=== PATIENT | male | born 1960 | race Caucasian/White ===

== ENCOUNTER 2017-06-25 12:25 | Day surgery (SDC) | payer BC, OTHER, SELFPAY | END 2017-06-25 15:50 | disposition home or self-care (01) | PROVIDERS: PCP Family Medicine; Visit Provider Orthopaedic Surgery Orthopaedic Surgery of the Spine | DX: M48.061 Spinal stenosis, lumbar region without neurogenic claudication (principal); M47.26 Other spondylosis with radiculopathy, lumbar region; I10 Essential (primary) hypertension; E66.01 Morbid (severe) obesity due to excess calories | CPT/HCPCS: 63047; 63048; 63030; 72100; 76001; J0131; J0690; J1030; J1100; J2250; J2405; J2704; J3010 ==

== ENCOUNTER 2019-05-23 21:59 | Emergency (ER) | payer OTHER, SELFPAY ==
[2019-05-23 22:07] VITALS: BP 172/93; PULSE 78; RESP 16; TEMP 36.2; O2SAT 99; BMI 38.7
--- NOTE | 2019-05-23 23:43 | DI.RAD.S_ITS ---
PROCEDURE: XR PELVIS 1-2V INDICATIONS: low back pain, hurts to move hips TECHNIQUE: 3 view(s) of the pelvis acquired. COMPARISON: [facility] [place] Mcinty[place], XR PELVIS WITH LATERAL HIP RIGHT, 05/18/2017, 10:36. FINDINGS: Bones: Postsurgical changes related to a right hip arthroplasty are again evident. No periprosthetic fractures are identified. Mild to moderate degenerative changes of the other pelvic joints are present. No suspicious osseous lesions or displaced pelvic fractures are evident. 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 Soft tissues: Visualized bowel gas pattern is normal. No suspicious soft tissue calcifications. IMPRESSION: No displaced fractures of the pelvis. Dictated by: Frederick Harrell M.D. on 05/24/2019 at 9:32 Approved by: Frederick Harrell M.D. on 05/24/2019 at 9:33
--- NOTE | 2019-05-23 23:43 | DI.CT.S_ITS ---
PROCEDURE: CT LUMBAR SPINE WO CON INDICATIONS: fall backwards landing on back TECHNIQUE: Noncontrast 3 mm thick sections acquired from the T12 level to the sacrum. Sagittal and coronal reformats were constructed. For radiation dose reduction, the following was used: automated exposure control. COMPARISON: [facility] [place], CR, XR LUMBAR SPINE 2 OR 3 VIEWS, 08/03/2017, 10:56. [facility], MR, L-SPINE WITHOUT CONTRAST, 05/29/2017, 12:04. FINDINGS: Image quality: Diagnostic. Bones: The vertebral body heights are of the lumbar spine are well-maintained. No acute compression fractures or displaced rib fractures are evident. Old injuries involving the left L1, L2, and L3 transverse processes are present. Moderate multilevel degenerative changes of the lumbar spine are similar to the most recent MRI with areas of disc height loss, endplate irregularity, and facet arthrosis. These findings are more prominent involving the facet joints of the lower lumbar spine. No suspicious osseous lesions are identified. Soft tissues: No retroperitoneal masses or hematomas. There is aortic atherosclerosis. Visualized aorta is normal in caliber. Subcutaneous edema within it and the dorsal lower lumbar subcutaneous tissues is present. IMPRESSION: Moderate degenerative changes of the lumbar spine without an acute fracture evident. Note: The preliminary report provided by [employer] is concordant with the final report. Dictated by: Frederick Harrell M.D. on 05/24/2019 at 9:38 Approved by: Frederick Harrell M.D. on 05/24/2019 at 9:40
[2019-05-23] MEDS: MORPHINE 4 MG/ML INJ IM (23:54)
[2019-05-23] MEDS: KETOROLAC 60 MG/2 ML VIAL 30 MG IM (23:54)
[2019-05-23] MEDS: CYCLOBENZAPRINE 10 MG TABLET PO (23:55)
--- NOTE | 2019-05-24 01:27 | ED.FALL ---
HPI - Fall General Chief Complaint: Fall Stated Complaint: Fall Time Seen by Provider: 05/23/19 23:35 Source: patient Mode of arrival: EMS History of Present Illness HPI Narrative: HPI: The patient is a 59-year-old male who was pulling on a stump or piece of wood and it suddenly gave out and he fell backwards onto concrete landing on his lower back than striking his neck and head. Patient states that he really did strike his head because he was wearing a hard helmet and the helmet struck the pavement. He denies any headache neck pain. However his severe lower back pain and was brought into the emergency department by ambulance. He denies any shooting pain down his legs weakness or paralysis arm. He is not on any anticoagulant and only takes a baby aspirin. He denied any chest pain shortness of breath difficulty in breathing any numbness tingling paresthesias anesthesia is paresis any cough or shortness of breath or chest pain. He has had no belly pain nausea or vomiting no diarrhea no urinary symptoms. He was not incontinence of urine or stool. The patient denies that he smokes cigarettes. Related Data Home Medications Medication Instructions Recorded Confirmed lisinopril 20 mg PO QDAY #0 09/21/12 aspirin 81 mg PO QDAY #0 10/09/12 hydrochlorothiazide 12.5 mg PO QDAY #0 02/05/17 meloxicam [Mobic] 15 mg PO #0 02/05/17 multivitamin [Multiple Vitamins] 1 tab PO QDAY #0 02/05/17 Previous Rx's Medication Instructions Recorded oxycodone 5 mg PO Q4HP PRN #90 tab 02/07/17 zolpidem 5 mg PO HSP PRN #30 tab 02/07/17 cyclobenzaprine 10 mg PO TID PRN #15 tab 05/24/19 naproxen [Naprosyn] 500 mg PO BID PRN #14 tab 05/24/19 oxycodone-acetaminophen [Percocet] 1 tab PO Q4-6H PRN #12 tab 05/24/19 Allergies Allergy/AdvReac Type Severity Reaction Status Date / Time No Known Drug Allergies Allergy Verified 05/23/19 22:10 Review of Systems Review of Systems Narrative: Review of systems were all negative except for those mentioned in the history of present illness. Exam Narrative Exam Narrative: PHYSICAL EXAM: CONSTITUTIONAL: Awake, Alert, Oriented, Coherent, Cooperative who is in moderate distress complaining of pain in his low back and unable to move without pain and discomfort. He describes the pain as spastic tight and squeezing. HEAD: AT/NC EENT: PERRL, FROM of eyes, no discharge, No epistaxis or nasal drainage Oral mucosa is moist and pink, NECK: Supple, no obvious JVD, Trachea is midline without stridor, no palpable LN or masses. SPINE: No gross deformity, no palpable tenderness of the cervical, spine THORAX: No deformity, retractions, chest wall tenderness. LUNGS: Clear with symmetrical breath sounds without respiratory distress HEART: Normal heart tones, regular rhythm and rate without murmur. ABDOMEN: Soft, non-tender, normal bowel sounds without guarding, rebound, rigidity or palpable mass . No tenderness to rocking the pelvis back and forth. EXTREMITIES: The patient has difficulty lifting his legs with knee extended off the end of the bed. He is passively able to partially flex his hips bilaterally and flex his knees. However external internal rotation of the hips cause pain and discomfort in his back. SKIN: No rash, bruising, petechiae or purpura. NEURO: Awake, alert, oriented, conversive, cranial nerves II-XII are symmetrical and normal, moves all 4 extremities and is ambulatory when discharged. Initial Vital Signs Initial Vital Signs: Vital Signs Temperature 97.1 F L 05/23/19 22:07 Pulse Rate 78 05/23/19 22:07 Respiratory Rate 16 05/23/19 22:07 Blood Pressure 172/93 H 05/23/19 22:07 Pulse Oximetry 99 05/23/19 22:07 Course Course Course Narrative: The patient states that the combination of Toradol, morphine, and cyclobenzaprine significantly relieved his pain and discomfort but not all of it. We are trying to road test the patient to see how he does. He was advised that he will probably have significant aches and pains for the neck slow 72 to 96 hours after which it should improve. He needs to be seen in follow-up by his primary care physician in 48-72 hours if not significantly better. He will be discharged. X-rays of his pelvis and hip revealed no acute fracture or dislocation. CT of his lumbar spine revealed no acute bony abnormalities according to the radiologist. Orders Ordered: Discontinued Medications Cyclobenzaprine HCl (Flexeril) 10 mg PO NOW ONE Stop: 05/23/19 23:43 Last Admin: 05/23/19 23:55 Dose: 10 mg Documented by: BRAD Ketorolac Tromethamine (Toradol) 30 mg IM NOW ONE Stop: 05/23/19 23:43 Last Admin: 05/23/19 23:54 Dose: 30 mg Documented by: BRAD Morphine Sulfate (Morphine) 4 mg IM NOW ONE Stop: 05/23/19 23:43 Last Admin: 05/23/19 23:54 Dose: 4 mg Documented by: BRAD Vital Signs Vital signs: Vital Signs - 8 hr 05/23/19 22:07 Temperature 97.1 F L Pulse Rate 78 Respiratory Rate 16 Blood Pressure 172/93 H Pulse Oximetry 99 Discharge Plan Departure Patient Disposition: Home Clinical Impression: Fall Qualifiers: Encounter type: initial encounter Qualified Code(s): W19.XXXA - Unspecified fall, initial encounter Lumbar contusion Qualifiers: Encounter type: initial encounter Qualified Code(s): S30.0XXA - Contusion of lower back and pelvis, initial encounter Low back strain Qualifiers: Encounter type: initial encounter Qualified Code(s): S39.012A - Strain of muscle, fascia and tendon of lower back, initial encounter Discharge Date/Time: 05/24/19 02:23 Instructions: How to Prevent Falls, DI for Back Strain or Sprain Activity Restrictions/Additional Instructions: 1. Follow-up with your primary care physician to be re-evaluated in 48-72 hours if your pain does not significantly improve with the medications. 2. Use a walker to ambulate while your having pain and discomfort. 3. Do not take both the Mobic and Naprosyn. Take 1 or the other. Take that medication which helps relieve your pain and discomfort the most. 4. For the next 48 hours apply cold compresses every 2-3 hours for 20-30 minutes to the area of pain and discomfort in your back. After that you can switch to warm compresses. 5 take the cyclobenzaprine 10 mg 3 times a day as needed for muscle spasms. 6. For a rescue medicine take the Percocet 5/325 every 6 hours for pain on relieved by the Naprosyn or cyclobenzaprine. 7. If you develop worsening pain or discomfort numbness tingling loss of sensation weakness or paralysis in your legs he you need to proceed to the nearest emergency department for re-evaluation. Prescriptions: New naproxen [Naprosyn] 500 mg tablet 500 mg PO BID PRN (Reason: pain) Qty: 14 RF: 0 cyclobenzaprine 10 mg tablet 10 mg PO TID PRN (Reason: muscle spasm) Qty: 15 RF: 0 oxycodone-acetaminophen [Percocet] 5-325 mg tablet 1 tab PO Q4-6H PRN (Reason: pain) Qty: 12 RF: 0 No Action lisinopril 20 MG tablet 20 mg PO QDAY Qty: 0 RF: 0 aspirin 81 MG tablet,chewable 81 mg PO QDAY Qty: 0 RF: 0 hydrochlorothiazide 12.5 MG tablet 12.5 mg PO QDAY Qty: 0 RF: 0 multivitamin [Multiple Vitamins] 1 EACH tablet 1 tab PO QDAY Qty: 0 RF: 0 meloxicam [Mobic] 7.5 MG tablet 15 mg PO Qty: 0 RF: 0 oxycodone 5 MG tablet 5 mg PO Q4HP PRNQty: 90 RF: 0 zolpidem 5 MG tablet 5 mg PO HSP PRNQty: 30 RF: 0 Referrals: Sony Lerma MD [Primary Care Provider] - ED Sign-out Cosign ED Attending Cosignature Attestation: I was immediately available in the department for consultation. This documentation has been reviewed and I agree with assessment and plan. Supervised by Shen Lo MD
--- NOTE | 2019-05-24 01:34 | PC.NURSE ---
ambulated with walker around unit, reported pain with ambulation however patient able to get self back into bed without assistance of staff. Initially patient required help sitting up. He is now sitting up comfortably on stretcher calling his to come and pick him up.
[2019-05-24 02:19] VITALS: BP 166/78; PULSE 72; RESP 18; O2SAT 99
== END 2019-05-24 02:23 | disposition home or self-care (01) ==
PROVIDERS: Emergency Provider Emergency Medicine; PCP Family Medicine
DX: S30.0XXA Contusion of lower back and pelvis, initial encounter (principal); S39.012A Strain of muscle, fascia and tendon of lower back, initial encounter; W19.XXXA Unspecified fall, initial encounter; Y99.0 Civilian activity done for income or pay
CPT/HCPCS: 72131; 72170; 96372; 99284; J1885; J2270

== ENCOUNTER 2020-08-08 19:54 | Emergency (ER) | payer BC, OTHER, SELFPAY ==
[2020-08-08] VITALS (10 sets, daily range): BP systolic 124–140; BP diastolic 67–81; PULSE 74–91; RESP 13–22; TEMP 36.3; O2SAT 94–97; BMI 39.4
--- NOTE | 2020-08-08 20:15 | DI.RAD.S_ITS ---
PROCEDURE: XR CHEST 2V INDICATIONS: Coughing/chest pain TECHNIQUE: 2 views of the chest were acquired. COMPARISON: None. FINDINGS: Surgical changes and devices: None. Lungs and pleura: Lungs are clear. No pleural effusions or pneumothorax. Mediastinum: Mediastinal contours are normal. Heart size is normal. Bones and chest wall: No suspicious bony abnormalities. Soft tissues appear unremarkable. IMPRESSION: No acute cardiopulmonary abnormality. Dictated by: Jase Arnett M.D. on 08/08/2020 at 20:56 Approved by: Jase Arnett M.D. on 08/08/2020 at 20:57
--- NOTE | 2020-08-08 20:15 | ED.NEUROSD ---
HPI - Neuro Symptoms/Deficit General Chief Complaint: Neuro Symptoms/Deficit Stated Complaint: MAKING ANY SENSE Time Seen by Provider: 08/08/20 20:15 History of Present Illness HPI Narrative: 60-year-old gentleman with a history of alcohol use disorder, hypertension and arthritis presents after his called 911 because he did not seem to be making any sense. After dinner this evening they went to sit down and he stated that he was restless and simply ?had to go for a walk?. It was raining cold and blood street and after dinner walks are not typical for the patient. He did go for a brief 1/4 mi walk of their property by the time he returned to the home he continued to act odd and told his that ?something was wrong and they needed to go to the emergency department. He was noticing increasing exertional dyspnea over the course of the day. He does note that he has been having were grunting type breathing episodes of last month. 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 He notes that he has had slight memory decline over the last number of months. He does not complain of headache, abdominal pain, vomiting or diarrhea. Has no complaints of unilateral weakness and reports no recent fever. On Anticoagulants: No Related Data Home Medications Medication Instructions Recorded Confirmed lisinopril 20 mg PO QDAY #0 09/21/12 aspirin 81 mg PO QDAY #0 10/09/12 hydrochlorothiazide 12.5 mg PO QDAY #0 02/05/17 meloxicam [Mobic] 15 mg PO #0 02/05/17 multivitamin [Multiple Vitamins] 1 tab PO QDAY #0 02/05/17 Previous Rx's Medication Instructions Recorded oxycodone 5 mg PO Q4HP PRN #90 tab 02/07/17 zolpidem 5 mg PO HSP PRN #30 tab 02/07/17 cyclobenzaprine 10 mg PO TID PRN #15 tab 05/24/19 naproxen [Naprosyn] 500 mg PO BID PRN #14 tab 05/24/19 oxycodone-acetaminophen [Percocet] 1 tab PO Q4-6H PRN #12 tab 05/24/19 Allergies Allergy/AdvReac Type Severity Reaction Status Date / Time No Known Drug Allergies Allergy Verified 05/23/19 22:10 Review of Systems Review of Systems Narrative: Remainder of complete review of systems is otherwise unremarkable except for that included in the HPI. Hematologic/Lymphatic On Anticoagulants: No Patient History Medical History (Updated 08/09/20 @ 02:40 by Sugar Krueger MD) Alcohol use disorder Hypertension Surgical History (Updated 08/09/20 @ 02:40 by Sugar Krueger MD) History of total right hip arthroplasty Social History Smoking Status: Former smoker Smoking Status: Former smoker alcohol intake frequency: 3 or more drinks per day Substance Use Type: does not use Exam Narrative Exam Narrative: General: Healthy appearing, in no acute distress. Able to give a complete and coherent history. Well-nourished well-developed HEENT: Moist mucous membranes, normal sclera with reactive pupils, Neck: No JVD, supple Respiratory: Lungs are clear to auscultation, no wheezing no rales no rhonchi. Full and symmetrical air movement Cardiac: Regular rate and rhythm no murmurs no bruits Abdomen: Obese, Soft, nontender, good bowel tones, no flank pain Skin: Warm and dry, no rashes Neurologic: Grossly neurologically intact with no obvious asymmetries or abnormalities Extremities: No trauma, well perfused Psych: Cooperative, somewhat distracted but fluent speech. Somewhat slowed cognitive responses Initial Vital Signs Initial Vital Signs: Vital Signs Temperature 97.4 F L 08/08/20 19:59 Pulse Rate 91 H 08/08/20 19:59 Respiratory Rate 22 08/08/20 19:59 Blood Pressure 136/76 08/08/20 19:59 Pulse Oximetry 97 08/08/20 19:59 Course Orders Ordered: ED Orders 08/08/20 20:15 XR chest 2V Stat EKG-12 Lead Stat 08/08/20 20:24 CT head/brain wo con Stat 08/08/20 20:25 Complete Blood Count AUTO DIFF Stat Comprehensive Metabolic Panel Stat D Dimer Stat Ethanol (ETOH) Stat Lipase Stat Magnesium Stat NT-proBNP (BNP-Adult 18+) Stat Troponin & CK Cardiac Panel Stat 08/08/20 22:00 Ammonia (NH3) Stat Discontinued Medications Thiamine HCl (Thiamine 200 Mg/2 Ml Vial) 100 mg IV NOW ONE Stop: 08/08/20 20:23 Last Admin: 08/08/20 21:04 Dose: 100 mg Documented by: MEAGHAN Vital Signs Vital signs: Vital Signs - 8 hr 08/08/20 19:59 08/08/20 20:25 08/08/20 20:30 Temperature 97.4 F L Pulse Rate 91 H 80 83 Respiratory Rate 22 13 16 Blood Pressure 136/76 127/77 Pulse Oximetry 97 94 95 08/08/20 20:53 08/08/20 21:00 08/08/20 21:30 Temperature Pulse Rate 85 87 87 Respiratory Rate 18 20 Blood Pressure 135/73 137/71 140/81 Pulse Oximetry 95 96 96 08/08/20 22:00 08/08/20 22:30 08/08/20 23:00 Temperature Pulse Rate 81 74 78 Respiratory Rate 20 15 18 Blood Pressure 124/72 124/67 Pulse Oximetry 95 96 96 08/08/20 23:01 Temperature Pulse Rate 79 Respiratory Rate 19 Blood Pressure 127/72 Pulse Oximetry 97 MDM - Neuro Symptoms/Deficit Medical Records Attestation: I reviewed the patient's medical records. Lab Data Attestation: I reviewed the patient's lab results. Result diagrams: 08/08/20 20:25 08/08/20 20:25 Labs: Lab Results 08/08/20 08/08/20 08/08/20 Range/Units 20:25 20:25 20:25 WBC 6.8 (4.5-11.0) X10^3/uL RBC 4.49 L (4.5-5.9) X10^6/uL Hgb 15.0 (13.5-17.5) g/dL Hct 44.5 (41-53) % MCV 98.9 (80-100) fL MCH 33.5 (26-34) PG MCHC 33.8 (30-36) % RDW 12.9 (11.6-14.8) % Plt Count 221 (150-400) X10^3/uL Neut % (Auto) 51.4 (50-75) % Lymph % (Auto) 35.8 (25-40) % [place] % (Auto) 8.0 (3-14) % Eos % (Auto) 4.3 H (2-4) % Baso % (Auto) 0.5 (0-2) % Neut # (Auto) 3500 (0904-4442) /uL Lymph # (Auto) 2400 (3065-0386) /uL [place] # (Auto) 500 (0-900) /uL Eos # (Auto) 300 (0-450) /uL Baso # (Auto) 0 (0-100) /uL D-Dimer < 200 (<230) ng/mL Sodium (137-145) mmol/L Potassium (3.4-5.1) mmol/L Chloride (98-107) mmol/L Carbon Dioxide (22-32) mmol/L BUN (9-20) mg/dL Creatinine (0.66-1.25) mg/dL Estimated GFR (>60) mL/min BUN/Creatinine Ratio (6-22) Glucose (80-110) mg/dL Calcium (8.4-10.2) mg/dL Magnesium (1.6-2.3) mg/dL Total Bilirubin (0.2-1.3) mg/dL AST (17-59) IU/L ALT (<50) IU/L Alkaline Phosphatase (38-126) U/L Ammonia (9-30) umol/L Total Creatine Kinase (55-170) U/L CK-MB (CK-2) CK-MB (CK-2) Rel Index Troponin I (0.01-0.034) ng/mL NT-Pro-B Natriuret Pep (<125) pg/mL Total Protein (6.3-8.2) g/dL Albumin (3.5-5.0) g/dL Globulin (1.7-4.1) g/dL Albumin/Globulin Ratio (1.0-2.8) Lipase (23-300) U/L Ethyl Alcohol 175 H ( - 10) mg/dL 08/08/20 08/08/20 Range/Units 20:25 22:00 WBC (4.5-11.0) X10^3/uL RBC (4.5-5.9) X10^6/uL Hgb (13.5-17.5) g/dL Hct (41-53) % MCV (80-100) fL MCH (26-34) PG MCHC (30-36) % RDW (11.6-14.8) % Plt Count (150-400) X10^3/uL Neut % (Auto) (50-75) % Lymph % (Auto) (25-40) % [place] % (Auto) (3-14) % Eos % (Auto) (2-4) % Baso % (Auto) (0-2) % Neut # (Auto) (4696-0951) /uL Lymph # (Auto) (0335-0586) /uL [place] # (Auto) (0-900) /uL Eos # (Auto) (0-450) /uL Baso # (Auto) (0-100) /uL D-Dimer (<230) ng/mL Sodium 141 (137-145) mmol/L Potassium 3.7 (3.4-5.1) mmol/L Chloride 104 (98-107) mmol/L Carbon Dioxide 25 (22-32) mmol/L BUN 14 (9-20) mg/dL Creatinine 0.86 (0.66-1.25) mg/dL Estimated GFR > 60.0 (>60) mL/min BUN/Creatinine Ratio 16.3 (6-22) Glucose 106 (80-110) mg/dL Calcium 9.4 (8.4-10.2) mg/dL Magnesium 2.1 (1.6-2.3) mg/dL Total Bilirubin 0.3 (0.2-1.3) mg/dL AST 67 H (17-59) IU/L ALT 46 (<50) IU/L Alkaline Phosphatase 111 (38-126) U/L Ammonia < 9 L (9-30) umol/L Total Creatine Kinase 96 (55-170) U/L CK-MB (CK-2) TNP CK-MB (CK-2) Rel Index TNP Troponin I < 0.012 (0.01-0.034) ng/mL NT-Pro-B Natriuret Pep 51 (<125) pg/mL Total Protein 7.7 (6.3-8.2) g/dL Albumin 4.2 (3.5-5.0) g/dL Globulin 3.5 (1.7-4.1) g/dL Albumin/Globulin Ratio 1.2 (1.0-2.8) Lipase 114 (23-300) U/L Ethyl Alcohol ( - 10) mg/dL Imaging Data Chest x-ray: Radiologist's Impression: FINDINGS: Surgical changes and devices: None. Lungs and pleura: Lungs are clear. No pleural effusions or pneumothorax. Mediastinum: Mediastinal contours are normal. Heart size is normal. Bones and chest wall: No suspicious bony abnormalities. Soft tissues appear unremarkable. IMPRESSION: No acute cardiopulmonary abnormality. Dictated by: Jase Arnett M.D. on 08/08/2020 at 20:56 CT scan - head: Radiologist's Impression: FINDINGS: Image quality: Excellent. CSF spaces: Basal cisterns are patent. No extra-axial fluid collections. Ventricles are normal in size and shape. Brain: No midline shift. No intracranial masses or hemorrhage. Castillo-white matter interface is normal. Skull and face: Calvarium and visualized facial bones are intact, without suspicious lesions. Sinuses: Visualized sinuses demonstrate a mucosal retention cyst in the right maxillary sinus. The mastoid air cells are well aerated. IMPRESSION: No acute intracranial abnormality. Dictated by: Jase Arnett M.D. on 08/08/2020 at 20:58 ECG Data Interpretation: Sinus rhythm at a rate of 82 Normal axis, normal intervals No acute ischemic changes MDM Narrative Medical decision making narrative: 60-year-old gentleman who presents with complaints of increased agitation confusion and something being off. He is moderately intoxicated but I suspect he lives at close to this level is did not show any signs of overt alcohol intoxication. There is no evidence of elevated pneumonia, stroke, kidney or liver problems. No evidence of sepsis acute coronary syndrome. Does note that he was feeling better by the time of discharge in both he and his were comfortable with going home. We did have a long discussion about his alcohol use disorder. Was given a dose of IV thigh min while in the emergency department but does not show any overt signs of Wernicke Korsakoff's syndrome. He has apparently never talked about it with medical file clerk previously and is very clear that he has no intention of stopping drinking or considering any type of inpatient or outpatient treatment Discharge Plan Departure Patient Disposition: Home Clinical Impression: Acute alteration in mental status, Alcohol use disorder Instructions: DI for Alcohol Use Disorder, DI for Altered Mental Status Activity Restrictions/Additional Instructions: Thank you for coming in today I did not find any life-threatening explanation for the alteration mental status this evening. I did not find any evidence for acute heart attack, stroke, tumors or masses in your brain. There is no sign of overwhelming infection, liver failure, collection of ammonia in your blood, kidney failure. Sometimes the best we are able to do in the emergency department is still you all of the things that are not a problem. Clearly your alcohol use is affecting you and this typically tends to get worse. If you decide you want to get help with your drinking please consider contacting outpatient services: [facility] [address] [place] [address] Rupert Espinoza [facility] [id number] If you have worsening issues, new or developing symptoms or other findings, please feel free to return to the emergency department I wish you the best Prescriptions: No Action lisinopril 20 MG tablet 20 mg PO QDAY Qty: 0 RF: 0 aspirin 81 MG tablet,chewable 81 mg PO QDAY Qty: 0 RF: 0 hydrochlorothiazide 12.5 MG tablet 12.5 mg PO QDAY Qty: 0 RF: 0 multivitamin [Multiple Vitamins] 1 EACH tablet 1 tab PO QDAY Qty: 0 RF: 0 meloxicam [Mobic] 7.5 MG tablet 15 mg PO Qty: 0 RF: 0 oxycodone 5 MG tablet 5 mg PO Q4HP PRNQty: 90 RF: 0 zolpidem 5 MG tablet 5 mg PO HSP PRNQty: 30 RF: 0 naproxen [Naprosyn] 500 mg tablet 500 mg PO BID PRN (Reason: pain) Qty: 14 RF: 0 cyclobenzaprine 10 mg tablet 10 mg PO TID PRN (Reason: muscle spasm) Qty: 15 RF: 0 oxycodone-acetaminophen [Percocet] 5-325 mg tablet 1 tab PO Q4-6H PRN (Reason: pain) Qty: 12 RF: 0 Referrals: Sony Lerma MD [Primary Care Provider] -
--- NOTE | 2020-08-08 20:24 | DI.CT.S_ITS ---
PROCEDURE: CT HEAD/BRAIN WO CON INDICATIONS: altered mental status TECHNIQUE: Noncontrast 4.5 mm thick angled axial sections acquired from the foramen magnum to the vertex, with coronal and sagittal reformats. For radiation dose reduction, the following was used: automated exposure control, adjustment of mA and/or kV according to patient size. COMPARISON: None. FINDINGS: Image quality: Excellent. CSF spaces: Basal cisterns are patent. No extra-axial fluid collections. Ventricles are normal in size and shape. Brain: No midline shift. No intracranial masses or hemorrhage. Castillo-white matter interface is normal. Skull and face: Calvarium and visualized facial bones are intact, without suspicious lesions. Sinuses: Visualized sinuses demonstrate a mucosal retention cyst in the right maxillary sinus. The mastoid air cells are well aerated. IMPRESSION: No acute intracranial abnormality. Dictated by: Jase Arnett M.D. on 08/08/2020 at 20:58 Approved by: Jase Arnett M.D. on 08/08/2020 at 21:01
[2020-08-08 20:47] LABS: Add Manual Diff / Slide Review NO; Basophils Absolute Auto 0 /uL (0-100); Basophils Percent Auto 0.5 % (0-2); Eosinophils Absolute Auto 300 /uL (0-450); Eosinophils Percent Auto 4.3 % (2-4); Hematocrit 44.5 % (41-53); Lymphocytes Absolute Auto 2400 /uL (1100-4500); Lymphocytes Percent Auto 35.8 % (25-40); Mean Corpuscular HGB Conc 33.8 % (30-36); Mean Corpuscular Hemoglobin 33.5 PG (26-34); Mean Corpuscular Volume 98.9 fL (80-100); Monocytes Absolute Auto 500 /uL (0-900); Neutrophils Absolute Auto 3500 /uL (1500-7000); Neutrophils Percent Auto 51.4 % (50-75); Platelet Count 221 X10^3/uL (150-400); Red Blood Cell Count 4.49 X10^6/uL (4.5-5.9); Red Cell Distribution Width 12.9 % (11.6-14.8); White Blood Cell Count 6.8 X10^3/uL (4.5-11.0)
[2020-08-08 20:50] LABS: Alanine Aminotransferase 46 IU/L (<50); Albumin 4.2 g/dL (3.5-5.0); Albumin Globulin Ratio 1.2 (1.0-2.8); Alkaline Phosphatase 111 U/L (38-126); Aspartate Aminotransferase 67 IU/L (17-59); BUN Creatinine Ratio 16.3 (6-22); Bilirubin Total 0.3 mg/dL (0.2-1.3); Blood Urea Nitrogen 14 mg/dL (9-20); Calcium 9.4 mg/dL (8.4-10.2); Carbon Dioxide 25 mmol/L (22-32); Chloride 104 mmol/L (98-107); Creatine Kinase 96 U/L (55-170); Estimated Glomerular Filt Rate > 60.0 mL/min (>60); Globulin 3.5 g/dL (1.7-4.1); Glucose 106 mg/dL (80-110); HEMOLYSIS < 15 (0-50); Lipase 114 U/L (23-300); Magnesium 2.1 mg/dL (1.6-2.3); Potassium 3.7 mmol/L (3.4-5.1); Sodium 141 mmol/L (137-145); Total Protein 7.7 g/dL (6.3-8.2)
[2020-08-08 20:59] LABS: D Dimer < 200 ng/mL (<230); NT-proBNP (BNP-Adult 18+) 51 pg/mL (<125)
[2020-08-08] MEDS: THIAMINE 200 MG/2 ML VIAL 100 MG IV (21:04)
[2020-08-08 21:07] LABS: Ethanol (ETOH) 175 mg/dL
[2020-08-08 21:21] LABS: Troponin I < 0.012 ng/mL (0.01-0.034)
[2020-08-08 22:16] LABS: Ammonia (NH3) < 9 umol/L (9-30)
== END 2020-08-08 23:25 | disposition home or self-care (01) ==
PROVIDERS: Emergency Provider Emergency Medicine; PCP Family Medicine
DX: R41.82 Altered mental status, unspecified (principal); Z72.89 Other problems related to lifestyle; R07.9 Chest pain, unspecified
CPT/HCPCS: 36415; 70450; 71046; 80053; 80320; 82140; 82550; 83690; 83735; 83880; 84484; 85025; 85379; 93005; 99284

== ENCOUNTER → 2021-05-06 11:20 | Outpatient (CLI) | payer OTHER, SELFPAY ==
[2021-05-06 12:59] LABS: COVID19 -Nasal RAPID Negative (Negative)
== END ==
PROVIDERS: PCP Family Medicine; Visit Provider Family Medicine Sleep Medicine
DX: Z20.822 Contact with and (suspected) exposure to COVID-19 (principal)
CPT/HCPCS: 87635; C9803

== ENCOUNTER → 2021-05-09 15:11 | Outpatient (CLI) | payer OTHER, SELFPAY ==
--- NOTE | 2021-05-09 15:13 | DI.NM.S_ITS ---
PROCEDURE: NM EXERCISE TREADMILL NON NUC COMPARISON: None. INDICATIONS: Other forms of dyspnea FINDINGS: The patient exercised for 4 minutes and 49 seconds, reaching 7.0 METs, LAST +37%. 86% of maximum predicted heart rate achieved. Appropriate BP response to exercise. No angina during the study. No ST changes with exercise. Rare PVCs noted. IMPRESSION: Low risk, normal treadmill ECG only with reduced exercise tolerance (LAST +37%). Target heart rate achieved. Dictated by: Cara Gupta MD on 05/10/2021 at 13:00 Approved by: Cara Gupta MD on 05/10/2021 at 13:02
--- NOTE | 2021-05-09 15:57 | PM.TREADMILL ---
Cardiac Stress Test Report Referral & Results Indication: dyspnea Rest ECG: normal sinus rhythm Procedure Note: treadmill stress test Impression: standard magen protocol 4:49, mets 7.0, reduced exercise capacity +37%, normal hemodynamic response to exercise, no chest pain or anginal symptoms, max HR 136, 101% of max predicted, target heart rate achieved, normal BP response. Normal sinus rhythm with frequent PVCs noted. Resting ECG is NSR. TIMMY Jiménez. Please note: Actual ECG tracings can be found in the PACS system.
== END ==
PROVIDERS: PCP Family Medicine; Referring Provider Nurse Practitioner Family; Visit Provider Nurse Practitioner Family
DX: R06.09 Other forms of dyspnea
CPT/HCPCS: 93017